=== PATIENT | male | born 1985 | race Caucasian/White ===

== ENCOUNTER → 2017-02-24 | Day surgery (SDC) | payer OTHER ==
[~2017-02-24] VITALS: Ht 190.5 cm; Wt 134.9 kg
[~2017-02-24] MED LIST: ACETAMINOPHEN 1000 MG/100 ML 100 ML IV ONE; ACETAMINOPHEN/HYDROcodone 325 MG/5 MG TAB ONE; ACETAMINOPHEN/HYDROcodone 325 MG/5 MG TAB PO PRN; BUPIVACAINE HCL PF 0.5% 30 ML VIAL ONE; BUPIVACAINE/EPINEPHRINE 0.25% 50 ML VIAL ONE; CHLORHEXIDINE GLUCONATE 2 % 1 PACK (2 CLOTHS) TOPICAL PRN; DEXAMETHASONE SOD PHOS 4 MG/ML VIAL IV ONE; DEXAMETHASONE SOD PHOS PF 10 MG/ML VIAL ONE; DO NOT ADM ANY ANTICOAGULANT DRUGS PRN; EPINEPHrine HCL (1:1000) 1 MG/ML VIAL IV ONE; GLYCOPYRROLATE 1 MG/5 ML SYRINGE IV PUSH ONE; INSULIN HUMAN REGULAR 1,000 UNITS/10 ML VIAL SQ PRN; KETOROLAC TROMETHAMINE 30 MG/ML (IVP) VIAL IV PUSH PRN; KETOROLAC TROMETHAMINE 30 MG/ML (IVP) VIAL ONE; LACTATED RINGER'S 1000 ML IV PRN; LIDOCAINE HCL 1% PF 5 ML AMPULE OTHER ONE; METOPROLOL TARTRATE 25 MG TAB PO PRN; METOPROLOL TARTRATE 5 MG/5 ML VIAL IV PUSH ONE; MIDAZOLAM HCL 2 MG/2 ML VIAL IV ONE; MORPHINE SULFATE 4 MG/ML INJ IV ONE; MULTTAB67 PO; NEOSTIGMINE 3 MG/3 ML SYR IV ONE; ONDANSETRON HCL 4 MG/2 ML VIAL IV PUSH ONE; POVIDONE IODINE 5% (ANTISEPSIS KIT) 4 APPLICATIONS EACH NARE PRN; PROMETHAZINE INJ 25 MG/ML VIAL ONE; PROPOFOL 200 MG/20 ML AMP IV ONE; ROCURONIUM INJ 50 MG/5 ML SYRINGE IV PUSH ONE; ROPIVACAINE 0.5% PF INJ 30 ML VIAL ONE; SODIUM CHLORID 0.9% 500 ML IV PRN; STERILE WATER FOR INJECTION 20 ML VIAL IV ONE; SUGAMMADEX SODIUM 200 MG/2 ML VIAL IV PUSH ONE; VECURONIUM BROMIDE 20 MG VIAL IV ONE; ceFAZolin 2 GM PREMIX 50 ML IV SCH
[2017-02-24 08:10] LABS: AUTOMATED NEUTROPHIL # 5.2 TH/MM3 (1.8-7.7); BASOPHIL # 0.1 TH/MM3 (0-0.2); BASOPHIL % 0.9 % (0.0-2.0); EOSINOPHIL # 0.3 TH/MM3 (0-0.4); EOSINOPHIL % 3.2 % (0.0-4.0); HEMATOCRIT 45.3 % (39.0-51.0); HEMO FLAGS DIFF FINAL; LYMPH % 36.4 % (9.0-44.0); LYMPHOCYTE # 3.6 TH/MM3 (1.0-4.8); MEAN CELL VOLUME 89.8 FL (80.0-100.0); MEAN CORPUSCULAR HEMOGLOBIN 30.9 PG (27.0-34.0); MEAN CORPUSCULAR HGB CONC 34.4 % (32.0-36.0); MONO % 6.7 % (0.0-8.0); NEUT % 52.8 % (16.0-70.0); PLATELET COUNT 217 TH/MM3 (150-450); RED BLOOD COUNT 5.04 MIL/MM3 (4.50-5.90); RED CELL DISTRIBUTION WIDTH 12.6 % (11.6-17.2); WHITE BLOOD COUNT 9.9 TH/MM3 (4.0-11.0)
[2017-02-24 08:48] LABS: POTASSIUM 3.7 MEQ/L (3.5-5.1)
--- NOTE | 2017-02-24 13:14 | MP ---
cc: SIRI MADSEN DATE OF SURGERY: 02/24/2017 PREOPERATIVE DIAGNOSIS Umbilical, ventral hernia. POSTOPERATIVE DIAGNOSIS Umbilical hernia and ventral hernia. PROCEDURE Robotic-assisted repair of umbilical and ventral epigastric hernia (umbilical hernia 1.5 cm x 2.5 cm, epigastric ventral hernia 1 cm x [address] Madsen. [employer] Staff. ANESTHESIA General and regional tap block. BLOOD LOSS Less than 10 ccs. FINDINGS The 1.5 cm x 2.5 cm umbilical hernia with chronic fat incarceration and a 1 cm x 1 cm epigastric hernia separate and more ___ along the midline of the umbilical hernia with chronic fat incarceration. COMPLICATIONS None. INDICATIONS FOR PROCEDURE The patient is a 31-year-old male who developed increasing pain and palpable mass around his umbilicus. The patient has an active job and had significant difficulty performing his tasks due to his pain. On physical examination he had an obvious hernia above the umbilicus and this was only partially reducible. Discussed with the patient about the risks, benefits, alternatives to hernia repair including options of primary and mesh repairs as well as robotic repair. The patient elected to undergo robotic repair and did decline mesh use for this hernia. PROCEDURE The patient was taken to the operating room and placed in the supine position, placed under general endotracheal anesthesia. The patient underwent a regional tap block. The patient's abdomen was prepped and draped in sterile fashion. Time-out was performed. The abdomen was entered through OptiVu technique on the right upper quadrant with a 5-mm port, 5 mm 0 degree camera. This was done without difficulty. We insufflated the abdomen and surveyed the abdomen with the 5 mm 0 degree camera and there is no evidence of any complication from our entry. There is an obvious chronic fat incarcerated hernia around the umbilicus. We then placed a 10-12 mm robot camera port, 8 mm camera port and then replaced our 5-mm port with 8 mm camera port, all in the right lateral abdomen. This was done under direct visualization with the laparoscope. At this point in time we docked the [employer] SI robotic system without difficulty. We then were able to use the fenestrated bipolar and the endoshears to reduce all of the hernia contents which was all viable preperitoneal fat. At this point in time we noted two hernias as described above which were both completely reduced. We did make a peritoneal and preperitoneal fat flap with the cautery completely. At this point in time we had good fascial edges as we had use of cautery to get back to good fascial tissue both hernias. We repaired this using a #1 Quill suture in primary fashion with three separate interlocking layers. This gave us a very strong technical repair and there was complete closure of both hernia defects which were essentially repaired by starting above the epigastric one and sewing inferiorly down below the umbilical hernia. At the completion of this we used a 3-0 Vicryl to tack back up our preperitoneal flap. De-docked the robot, removed ports and expressed pneumoperitoneum. We closed the port sites with Monocryl and Dermabond. We discontinued the patient from anesthesia and took the patient to the PACU in stable condition. The patient tolerated the procedure well. No apparent complications. All counts were correct. I was present for the entire procedure. MD OSWALD Bullock/TLL /10:51 AM /12:47 PM
[2017-02-24 13:17] VITALS: BP 127/67; PULSE 77; RESP 20; TEMP 97.6; O2SAT 97
== END | disposition home or self-care (01) ==
LOC: HSDC 06:08
PROVIDERS: ATTEND Surgery
DX: K43.9 Ventral hernia without obstruction or gangrene (principal); K42.9 Umbilical hernia without obstruction or gangrene
CPT/HCPCS: 00752; 49653; 80048; 85025; J0131; J0171; J0690; J1100; J1885; J2250; J2270; J2405; J2550; J2710; J2795; J3010; J7120